=== PATIENT | female | born 2000 | race Two or more races ===

== ENCOUNTER 2023-08-09 18:35 | Emergency (ER) | payer MEDICAID, OTHER ==
[~2023-08-09] VITALS: Ht 160 cm; Wt 58.5 kg
[2023-08-09 19:15] VITALS: BP 130/93; PULSE 88; RESP 16; TEMP 96.8; O2SAT 98
[2023-08-09] MEDS ORDERED: ACYC400T16 PO (20:29)
[2023-08-09] MEDS ORDERED: ARTISOL13 OP (20:29)
[2023-08-09] MEDS ORDERED: PRED20TA2 PO (20:30)
== END 2023-08-09 21:23 | disposition home or self-care (01) ==
LOC: ER 18:35
DX: G51.0 Bell's palsy (principal)
CPT/HCPCS: 70450